=== PATIENT | female | born 1950 | race Caucasian/White ===

== ENCOUNTER 2021-02-15 13:43 | Outpatient (CLI) | payer MEDICARE | END 2021-02-15 13:44 | disposition home or self-care (01) | LOC: CSHMRI 13:43 | PROVIDERS: ATTEND Surgery | DX: M54.6 Pain in thoracic spine (principal); M25.559 Pain in unspecified hip; M79.606 Pain in leg, unspecified; M54.5 Low back pain; M47.814 Spondylosis without myelopathy or radiculopathy, thoracic region; Z98.890 Other specified postprocedural states; M47.816 Spondylosis without myelopathy or radiculopathy, lumbar region; G95.89 Other specified diseases of spinal cord; R19.09 Other intra-abdominal and pelvic swelling, mass and lump; M47.815 Spondylosis without myelopathy or radiculopathy, thoracolumbar region; T84.216A Breakdown (mechanical) of internal fixation device of vertebrae, initial encounter | CPT/HCPCS: 72070; 72131; 72148 ==